=== PATIENT | female | born 1985 | race Caucasian/White ===

== ENCOUNTER 2020-10-06 13:01 | Outpatient (CLI) | payer OTHER, SELFPAY ==
--- NOTE | ~2020-10-06 | MMUS_ITS ---
EXAMINATION: MM diagnostic shay BI w fredy, US breast BI complete HISTORY: Left 1:00 breast lump TECHNIQUE: Spot and full field 3-D tomosynthesis images of both breasts were performed and synthetic 2-D images were generated. CAD analysis was submitted and interpreted. High resolution bilateral comp lete breast ultrasound was performed. COMPARISON: None BREAST PARENCHYMAL COMPOSITION: The breasts are heterogeneously dense, which may obscure small masses . FINDINGS: MAMMOGRAPHIC FINDINGS: Right breast: There is a biopsy marker anteriorly in the outer mid right breast. Left breast: 11 mm posterior upper outer left breast 11 mm circumscribed opacity with mammographic features sugges t benign process. This lesion corresponds to the area of the patient's complaint of lump. 9 mm circumscribed low-density opacity in the lower inner left breast, having mammographic features s uggest a benign process. ULTRASOUND: Right breast: 9:00 1 cm from nipple: 5.1 x 6 mm simple cyst 9:00 3 cm from nipple: 5.4 x 6.5 mm cyst with through transmission 9:00 4 cm from nipple: 8.9 x 6.6 mm cyst with through transmission posterior enhancement Left breast: 2:00 5 cm from nipple: There is a lobular shaped irregular hypoechoic solid up to approximately 13 mm partially circumscribed mass. There is internal vascularity. This lesion is suspicious. Ultrasound-g uided biopsy is recommended. 8:00: There is a 6.1 x 10.1 mm irregular incompletely circumscribed hypoechoic solid lesion with inte rnal vascularity. This lesion is suspicious. Ultrasound-guided biopsy is recommended. IMPRESSION: 1. Suspicious abnormalities of left breast at 2:00 and 8:00 2. Ultrasound-guided biopsy of 2:00 and 8:00 lesions is recommended. BI-RADS category 4, suspicious findings. Dr. Martines telephoned the report and left breast ultrasound guided biopsy recommendations on 10/06/2020 a t [address] Shanta Miramontes Reviewed, dictated and finalized at [facility]. IMPRESSION: 1. Suspicious abnormalities of left breast at 2:00 and 8:00 2. Ultrasound-guided biopsy of 2:00 and 8:00 lesions is recommended. BI-RADS category 4, suspicious findings. Dr. Martines telephoned the report and left breast ultrasound guided biopsy recomme ndations on 10/06/[address] Shanta Miramontes
== END 2020-10-06 13:02 | disposition home or self-care (01) ==
PROVIDERS: PCP Internal Medicine; Visit Provider Obstetrics & Gynecology
DX: N63.20 Unspecified lump in the left breast, unspecified quadrant (principal); R92.8 Other abnormal and inconclusive findings on diagnostic imaging of breast
CPT/HCPCS: 76641; 77062; 77066; G0279

== ENCOUNTER 2022-03-12 14:02 | Outpatient (CLI) | payer OTHER, SELFPAY ==
--- NOTE | ~2022-03-12 | US_ITS ---
US breast BI limited DATE: 03/12/2022 14:57 INDICATION: Multiple breast masses TECHNIQUE: Bilateral complete breast ultrasound including all 4 quadrants and subareolar areas COMPARISON: 10/06/2020 bilateral diagnostic mammography and bilateral complete breast ultrasound FINDINGS: Right breast: At 9:00, 4 cm from the nipple, there is a round hypoechoic mass with low level internal echoes measuring 6 x 6 x 5 mm compared with 8 x 7 x 9 mm on prior examination. There is posterior ac oustic enhancement. At 9:00, 3 cm from the nipple, there is a round hypoechoic mass measuring 4 x 4 x 3 mm compared with 7 x 5 x 6 mm on prior examination. There is no significant posterior features or internal vascularity. At 9:00, 1 cm from the nipple, there is a cyst measuring 5 x 5 x 2 mm compared with 6 x 6 x 5 mm on prior examination. No new right breast masses are identified. Left breast: At 2:00, 5 cm from the nipple, there is an oval parallel oriented hypoechoic mass withou t posterior features or internal vascularity measuring 5 x 2 x 4 mm, most likely benign complicated c yst. At 3:00, 5 cm from the nipple there is a lobulated oval hypoechoic mass with heterogeneous inter nal echotexture measuring 8 x 6 x 8 mm compared with 1.3 x 0.9 x 0.6 cm on prior examination.. No int ernal vascularity. Also at 3:00, 5 cm from the nipple, there is a lobulated hypoechoic mass measuring 1.3 x 1 x 0.7 cm compared with 1.3 x 0.7 x 0.7 cm with mixed posterior attenuation, no internal vasc ularity. This is slightly increased in size compared with prior examination. At 8:00, 4 cm from the n ipple, there is an-type parallel lobulated hypoechoic mass measuring 1.2 x 0.9 x 0.8 cm, suspicious. There are internal echogenic foci, possibly calcifications. IMPRESSION: Suspicious masses in the left breast at 3:00, 5 cm from the nipple and 8:00, 4 cm from th e nipple. Recommend correlation with diagnostic bilateral mammogram. BI-RADS CATEGORY 0 - INCOMPLETE STUDY, NEED ADDITIONAL IMAGING EVALUATION. Reviewed, dictated and finalized at [facility]. Reviewed, dictated and finalized at [facility]. T BUILDER IMPRESSION: Suspicious masses in the left breast at 3:00, 5 cm from the nipple and 8:00, 4 cm from the nipple. Recommend correlation with diagnostic bilateral mammogram. BI-RADS CATEGORY 0 - INCOMPLETE STUDY, NEED ADDITIONAL IMAGING EVALUATION.
== END 2022-03-12 14:03 | disposition home or self-care (01) ==
PROVIDERS: PCP Internal Medicine; Visit Provider Obstetrics & Gynecology
DX: R92.8 Other abnormal and inconclusive findings on diagnostic imaging of breast (principal)
CPT/HCPCS: 76641; 76642

== ENCOUNTER 2022-04-13 12:47 | Outpatient (CLI) | payer OTHER, SELFPAY ==
--- NOTE | ~2022-04-13 | MM_ITS ---
EXAMINATION: MM diagnostic shay BI w fredy HISTORY: Suspicious masses of the left breast seen on recent ultrasound TECHNIQUE: Additional 3-D tomosynthesis images of the breasts were performed and synthetic 2-D images were generated. CAD analysis was submitted and interpreted. COMPARISON: Comparison to multiple prior studies sequentially, with oldest reviewed study dated 01/31. BREAST PARENCHYMAL COMPOSITION: The breasts are heterogeneously dense, which may obscure small masses FINDINGS: The right breast is stable without evidence for malignancy. There are masses in the upper o uter quadrant of the left breast as well as the lower inner quadrant of the left breast which corresp ond to the abnormal masses identified on recent breast ultrasound at 3:00 and 8:00. The mass at 3:00 and increased in size slightly compared with prior examination. In the mass at 8:00 was also increase d in size. IMPRESSION: 1. Left breast masses which are slightly increased in size compared with prior studies. 2. Ultrasound-guided left breast biopsies recommended. BI-RADS category 4, suspicious findings. Reviewed, dictated and finalized at location [facility]. [employer] SERVICE COORDINATOR
== END 2022-04-13 12:48 | disposition home or self-care (01) ==
PROVIDERS: PCP Internal Medicine; Visit Provider Obstetrics & Gynecology
DX: N63.21 Unspecified lump in the left breast, upper outer quadrant (principal); N63.24 Unspecified lump in the left breast, lower inner quadrant
CPT/HCPCS: 77062; 77066; G0279